=== PATIENT | female | born 1955 | race Caucasian/White ===

== ENCOUNTER → 2019-06-28 | Outpatient (RCR) | payer OTHER ==
[~2019-06-28] MED LIST: CLONIDINE HCL0.1 MG PO; HYDRALAZINE HCL25 MG PO; MONTELUKAST SOD10 MG PO; POTASSIUM CHLO20 ME1 PO; SPIRONOLACTONE25 MG PO; TRIBENZOR 40-11 EAC1 PO
== END ==
LOC: OT 06-16 12:01
PROVIDERS: ATTEND Specialist
DX: S46.012D Strain of muscle(s) and tendon(s) of the rotator cuff of left shoulder, subsequent encounter (principal); S63.8X2D Sprain of other part of left wrist and hand, subsequent encounter; M25.512 Pain in left shoulder; R53.1 Weakness

== ENCOUNTER 2019-07-27 07:57 | Outpatient (RCR) | payer OTHER | END 2019-07-29 | LOC: OT 07:57 | PROVIDERS: ATTEND Specialist | DX: S46.012A Strain of muscle(s) and tendon(s) of the rotator cuff of left shoulder, initial encounter (principal); S63.8X2A Sprain of other part of left wrist and hand, initial encounter | CPT/HCPCS: 97139 ==